=== PATIENT | female | born 1970 | race Caucasian/White ===

== ENCOUNTER → 2017-02-23 | Outpatient (CLI) | payer OTHER ==
[~2017-02-23] VITALS: Ht 165.1 cm; Wt 89.8 kg
[~2017-02-23] MED LIST: ACETAMINOPHEN325 M1 PO; BUTALB-APAP-CA1 EACH PO; CELEXA10 M1 PO; CYMBALTA30 MG PO; IBUPROFEN 600600 M1 PO; LISINOPRIL2.5 MG PO; LOPRESSOR25 PO; LOVENOX40 MG/0.4 SQ; MINIPRIN81 MG PO; NITROGLYCERIN0.4 MG SL; NORCO 5-325 TA1 EACH PO; ORACEA40 MG PO; PLAVIX 75 MG TA75 MG PO; PRAVACHOL PO; TIZANIDINE HCL 22 M1 PO; TROKENDI XR50 MG PO
--- NOTE | ~2017-02-23 | HPC ---
[facility] [place] [address] PAIN MANAGEMENT CONSULTATION Name: ALEX BAEZA ANN Room #: REG GARRET Owusu#: [id number] Admission: 02/23/17 Attend Phys: Kael Silva DO Discharge: Date of : 68 Report #: [id number] THIS REPORT FOR: //name// CC: Madi Silva HISTORY OF PRESENT ILLNESS: The patient is a very pleasant 46-year-old female being treated for myofascial pain, component of lumbar radiculopathy, headaches and coronary artery disease. Last seen in pain clinic on 08/14/2016. She has been stable on Cymbalta 30 mg one a day, tizanidine 2 mg as needed for acute spasm. She uses these fairly infrequently. Returns to pain clinic today noting medications are generally quite helpful. Some pain in the left scapula, some chronic back pain. She rates it 3 on a VAS, though notes that her acute spasms are generally well aborted with p.r.n. tizanidine. She has not required trigger point injections for some time. PHYSICAL EXAMINATION: Today shows 46-year-old female, BMI is 30.9 kg/m2. Blood pressure is modestly elevated at 151/89, pulse 91 and respiratory rate 16. Alert and oriented to person, place and time, judged to be a reasonable historian. Has some diffuse axial back pain, no discrete trigger points today. Gait is tandem. We spent a long time today talking about multiple interval health issues. She has had 3 "cardiac episodes" where she felt she has had syncope/presyncope and dysrhythmia. She does have a pacemaker in place and states that she could feel it kicking in. Each time, her pacemaker has been interrogated by detective and no pathology was found. She did have a chemical stress test with no pathology found. She also notes she has had a little bit of nausea recently. Really, no medication changes are noted, though she does take a little bit of ibuprofen along with her Plavix. I did suggest that that might be a source of some of the nausea. I did caution about melanotic stools and bleeding with concurrent use of Plavix and ibuprofen. ASSESSMENT: Myofascial pain in a patient with multiple comorbidities including coronary artery disease, cardiac dysrhythmia, lumbar radiculopathy and chronic headaches generally stable on baseline medication. RECOMMENDATION: Continue Cymbalta 30 mg once a day, taken the liberty of writing for 6 months of current medication; tizanidine p.r.n. Today, we did talk about trialing Fioricet 1 tablet q. 4 hours as needed for headache, dispensed 20 tablets with 2 refills. Suggest she try this in lieu of migraine [address] [address] PAIN MANAGEMENT CONSULTATION Name: ALEX BAEZA ANN Room #: REG GARRET Owusu#: [id number] Admission: 02/23/17 Attend Phys: Kael Silva DO Discharge: Date of : 68 Report #: [id number] Excedrin. The aspirin in that agent may be causing some gastritis as well. Discharged in good and stable condition. Follow up as needed. By: [id number] [id number] Kael Silva DO /nt
[2017-02-23 12:59] VITALS: BP 151/89
== END | disposition home or self-care (01) ==
LOC: PAIN 12:45
DX: M79.1 Myalgia (principal); G89.29 Other chronic pain; M54.16 Radiculopathy, lumbar region; I25.10 Atherosclerotic heart disease of native coronary artery without angina pectoris; I49.9 Cardiac arrhythmia, unspecified; R51 Headache; Z79.82 Long term (current) use of aspirin; Z95.1 Presence of aortocoronary bypass graft; Z88.5 Allergy status to narcotic agent; Z98.890 Other specified postprocedural states; Z79.899 Other long term (current) drug therapy

== ENCOUNTER → 2017-08-31 | Outpatient (CLI) | payer OTHER ==
[~2017-08-31] VITALS: Ht 165.1 cm; Wt 89.8 kg
[~2017-08-31] MED LIST changes: +AIMOVIG AU70 MG/1 ML SUBQ
--- NOTE | ~2017-08-31 | HPC ---
[facility] [address] [address] PAIN MANAGEMENT CONSULTATION Name: ALEX BAEZA ANN Room #: REG GARRET Bonilla.#: [id number] Admission: 08/31/17 Attend Phys: Kael Silva DO Discharge: Date of : 68 Report #: [id number] THIS REPORT FOR: //name// CC: Madi Silva DATE OF SERVICE: 08/31/2017 The patient is a very pleasant 47-year-old female known to the pain clinic, being treated for chronic headaches, myofascial pain, lumbar radiculopathy, history of coronary artery disease, on Plavix. Last seen nearly half a year ago, 02/23/2017, continued on low dose Cymbalta 30 mg, tizanidine 2 mg p.r.n. and Fioricet for headaches. Returns to pain clinic today noting that these medications have been helpful. She is generally able to participate in activities of daily living. She unfortunately was hospitalized with colitis recently. This has somewhat resolved. She notes that medications are helpful. Primary pain is left scapula, right flank. Headaches have been fairly nominal. She notes dull, knotty, intermittent chronic pain. Fortunately today, she rates it a 0 on a VAS, not sure what seems to exacerbate pain, seems to be episodic. Heat and tizanidine are most helpful for the axial pain. PHYSICAL EXAMINATION: Shows 47-year-old female, BMI is 32.9 kilograms per meter squared. Blood pressure is 134/93, pulse 76, respirations are 14. Again, pain intensity at present is 0. She has not fallen in the last 3 months. Medication list was reconciled. She is on Plavix for coronary artery disease. She is hypertensive and was treated for same. She does not use chronic opiate agents. Rises from chair using armrest. Gait is tandem. Upper and lower extremity strength is generally preserved. Cervical range of motion is modestly limited, some diffuse tenderness in the splenius capitis, trapezius. ASSESSMENT AND PLAN: Myofascial pain, history of headaches, coronary artery disease and lumbar radiculopathy, seems all well controlled with current medications including Cymbalta 30 mg daily, tizanidine 2 mg p.r.n. and Fioricet as needed for headaches. I have taken the liberty of writing for all 3 medications with multiple refills. Follow up in 6 months if needed. <ELECTRONICALLY SIGNED> By: Kael Silva DO 09/03/17 0813 [id number] [id number] Kael Silva DO /nt
[2017-08-31 10:39] VITALS: BP 134/93
== END ==
LOC: PAIN 06:56
DX: M79.1 Myalgia (principal); M54.16 Radiculopathy, lumbar region; I25.10 Atherosclerotic heart disease of native coronary artery without angina pectoris

== ENCOUNTER → 2018-03-29 | Outpatient (CLI) | payer OTHER ==
[~2018-03-29] VITALS: Ht 165.1 cm; Wt 94.3 kg
[2018-03-29 09:17] VITALS: BP 113/78
== END ==
LOC: PAIN 06:47
DX: M25.512 Pain in left shoulder (principal); R51 Headache; G89.29 Other chronic pain; R10.9 Unspecified abdominal pain; I10 Essential (primary) hypertension; F32.9 Major depressive disorder, single episode, unspecified; Z79.899 Other long term (current) drug therapy

== ENCOUNTER → 2018-04-09 | Outpatient (CLI) | payer OTHER ==
[~2018-04-09] VITALS: Ht 165.1 cm; Wt 94.1 kg
--- NOTE | ~2018-04-09 | HPC ---
[facility] [address] [place] [address] PAIN MANAGEMENT CONSULTATION Name: FELISHAJEAN-CLAUDE Room #: REG GARRET Owusu#: [id number] Admission: 04/09/18 Attend Phys: Mazin Silva DO Discharge: Date of : 68 Report #: [id number] THIS REPORT FOR: //name// CC: Mazin Sabillon DATE OF SERVICE: 04/09/2018 CHIEF COMPLAINT: Right thigh pain, chronic headache. HISTORY OF PRESENT ILLNESS: As you know, the patient is a very pleasant 47-year-old female who returns today in followup visit with concern of right leg pain status post Aimovig injection for migraine headaches. The patient underwent the procedure with one of our nurses last week. The patient self-injected the medication and began to experience right leg pain approximately 2 days after the injection. As you are aware, the patient is on anticoagulation. Our concern was the patient may have caused some internal bleeding in the right leg and we had the patient return for followup. The patient, as you are aware, also has a lumbar radiculopathy, which radiates along the right side all the way to her foot and leads to numbness, tingling and aching sensations not dissimilar to the report she had after the injection. We have had the patient return for evaluation of this right leg and to discuss potential treatment options for ongoing headache issues. Her headache does appear to be related to more of a tension style headaches and migrainous. The patient also reports her blood pressure has been poorly controlled of late and she has been under a significant amount of stress with changes in her job, which correlates with tension headache findings. The patient notes about 3 headaches since the Aimovig injection, which may be migrainous though the distribution she reports today appears more tension like. She returns to discuss her concerns about right leg pain. ALLERGIES: MEPERIDINE. CURRENT MEDICATIONS: Lisinopril 2.5 mg once a day, aspirin 81 mg per day, Plavix 75 mg per day, ibuprofen 600 mg p.r.n., pravastatin 20 mg per day, nitroglycerin 0.4 mg p.r.n., Fioricet 1 tab every 6 hours p.r.n. migraine headaches, duloxetine 30 mg once a day, tizanidine 2 mg every 8 hours. SOCIAL HISTORY: The patient reports she is a nonsmoker. Denies IV or illicit drug use. Rarely uses alcohol. She is currently employed in medical billing, working, not receiving workmen's compensation, unaccompanied today. IMAGING: No new imaging available. PHYSICAL EXAMINATION: GENERAL: Well-developed, well-nourished, well-hydrated exogenously obese [address] [address] PAIN MANAGEMENT CONSULTATION Name: FELISHAJEAN-CLAUDE Room #: REG GARRET Owusu#: [id number] Admission: 04/09/18 Attend Phys: Mazin Silva DO Discharge: Date of : 68 Report #: [id number] 47-year-old female appearing stated age, placing pain up to 6/10. HEENT: Normocephalic, atraumatic. Pupils equal, round, reactive to light. Extraocular muscles are intact. Speech is fluent. EXTREMITIES: Show no clubbing, no cyanosis, no edema. MUSCULOSKELETAL: The patient has some tenderness to palpation along the vastus lateralis on the right when compared to left. Deep palpation of the area causes mild intensification of pain. Gait is normal. Muscle bulk and tone is equal and symmetrical. There is no ecchymosis, no changes in skin color or texture overlying the right leg. Distal pulses are normal. There is no venous congestion noted on physical exam. She has full range of motion. Deep tendon reflexes are symmetrical, comparing left lower extremity over right. She does have some palpatory tenderness over the paraspinal musculature of the upper cervical region. Deep palpation of the area causes intensification of pain. There is noted lipoma on the underlying the left splenius capitis muscle. ASSESSMENT: 1. Right-sided pain. 2. Chronic lumbar radiculopathy. 3. Cardiac dysrhythmia, requiring permanent pacemaker and anticoagulation. 4. Bleeding diathesis. 5. Tension headache. 6. Right leg pain. PLAN: 1. The patient has returned today in followup visit with concern of right leg pain status post Aimovig injection. There is no erythema, no ecchymosis overlying the leg. She has good and complete function with full range of motion of the right lower extremity. There is a possibility that the patient self-injected into the vastus lateralis on the right causing intramuscular bleeding due to her anticoagulant activity with Plavix and this has led to an increased leg pain. This will likely be self-resolving as the patient is not noticing any changes in skin color, texture or overlying tissue concerning of continued bleeding. Her symptoms have begun to improve, which would correlate with the possibility of intramuscular injection of the Aimovig. Other potential source may be recurrent lumbar radiculopathy. The patient has known right lower extremity symptoms for which when she stands for long periods, her leg "goes asleep." This would correlate with lumbar radiculopathy, which may be the source of the patient's right leg pain. This may be true, true and unrelated issues, true she had an Aimovig injection on the right side, true she has lateral leg pain, but this may correlate to lumbar radiculopathy, not necessarily to the injection. Either way, treatment should be conservative at this time. 2. I have recommended the patient use a soft roller on the right lateral leg to help improve muscle function. She can utilize this along with heat and cold compresses as necessary to improve overall pain. I recommend the patient keep up with activities, so that this helps utilize the muscle and decrease the pain. [facility] [address] [place] [address] PAIN MANAGEMENT CONSULTATION Name: ALEX BAEZA ANN Room #: REG [facility].#: [id number] Admission: 04/09/18 Attend Phys: Mazin Silva DO Discharge: Date of : 68 Report #: [id number] I did advise the patient if her pain continues or the distribution goes beyond the knee. This is lumbar radicular in origin and she may need epidural injection. She will monitor results and advise us if need to move further. 3. I have advised the patient to no longer utilize Aimovig. There is a possibility she is having a reaction at the site to this medication. She has not noted much relief of her headaches to date and thus, Aimovig can be discontinued. 4. In regards to patient's headache, this appears to be more related to tension and the patient does indicate her stress level has increased, as has her blood pressure is quite elevated today. I do feel that she is going to need to adjust her blood pressure medicine back to a more typical dosing. She will need to contact her PCP in regards to this. In regards to the tension headache, I recommend escalating dose of Cymbalta. 5. The patient will increase Cymbalta from 30 mg to 60 mg. This should help for some of the anxiety and stress she may be experiencing due to changes in work level. This will help the patient decrease potential headache pain as well. I have given the patient 60 tablets of the 30 mg dose to increase to 60 tonight. She will continue for a week, then contact her clinic if no improvement in symptoms and no side effects, we may escalate to 90 mg per day. 6. We will see the patient back in followup visit. She is to monitor her right leg pain and advise us of improvement. If her symptoms do progress beyond the lateral thigh into the lower extremity, she may ultimately need an epidural injection to address chronic lumbar radicular symptoms for which the patient has been treated in the past. She will keep us apprised. <ELECTRONICALLY SIGNED> By: Mazin Silva DO 04/10/18 0908 1 1946 Mazin Silva DO /nt
[2018-04-09 08:14] VITALS: BP 133/88
== END ==
LOC: PAIN 07:01
DX: M54.16 Radiculopathy, lumbar region (principal); G89.29 Other chronic pain; I49.9 Cardiac arrhythmia, unspecified; D69.9 Hemorrhagic condition, unspecified; M79.604 Pain in right leg; G44.209 Tension-type headache, unspecified, not intractable

== ENCOUNTER → 2018-09-11 | Outpatient (CLI) | payer OTHER ==
[~2018-09-11] VITALS: Ht 165.1 cm; Wt 96.5 kg
[~2018-09-11] MED LIST changes: +CYMBALTA60 MG PO; -LISINOPRIL2.5 MG PO; +LISINOPRIL5 MG PO
[2018-09-11 09:32] VITALS: BP 109/73
--- NOTE | 2018-09-11 10:01 | NUR ---
Pain Clinic Assessment: 1. History of Osteoarthritis: Not Applicable History of Rheumatoid Arthritis: Not Applicable 2. Height: 5 ft. 5 in. 165.1 cm. Weight: 212.8 lb. oz. 96.526 kg. Patient's BMI: 35.4 3. Vital Signs: BP: 109/73 Pulse: 85 Resp: 16 Temp: 02 Sat: 98 ECG Mon: 4. Pain Intensity: 3 5. Fall Risk: Dizziness: N Needs help standing or walking: N Fallen in the last 3 months: N Fall risk comments: 6. Patient on Blood Thinner: Clopidogrel Bisulf(Plavix 7. History of Hypertension: Y 8. Opioid Therapy greater than 6 weeks: N Opiate Contract Signed: 9. Risk Assessment Tool Provided: 10. Functional Assessment Tool: 11. Recreational Drug Use: Never Drug Type: Tobacco Use: Never Smoker Tobacco Type: Amount or Packs/day: How Many Years: Alcohol Use: No Frequency: Quant:
--- NOTE | 2018-09-18 08:13 | HPC ---
[facility] [address] [place] [address] PAIN MANAGEMENT CONSULTATION Name: ALEX BAEZA ANN Room #: REG GUEROJeet Bonilla.#: [id number] Admission: 09/11/18 ������������������ Attend Phys: Mazin Silva DO Discharge: ������������������ Date of : 68 Report #: [id number] THIS REPORT FOR: //name// CC: Mazin Sabillon MD DATE OF SERVICE: 09/11/2018 CHIEF COMPLAINT: Left upper back pain, right flank pain. HISTORY OF PRESENT ILLNESS: As you know, the patient is a very pleasant 48-year-old female who returns today in followup visit for treatment of myofascial pain and chronic lumbar radicular symptoms. She indicates that her chronic headaches have improved significantly with adjustments in her blood pressure medication. She returns requesting refill of her Cymbalta as she does find this quite beneficial for pain control. She is placing current pain score at 3/10, states her pain is exacerbated with stress, improves with medications. She describes the pain as aching. She returns in followup visit for treatment of her chronic fibromyalgia pain, which leads to upper back, right flank pain and chronic neck pain. Other than the changes in her blood pressure medication, she has had no changes in therapy. No new injuries. No new traumas. ALLERGIES: MEPERIDINE. CURRENT MEDICATIONS: Cymbalta 90 mg p.o. at bedtime, tizanidine 2 mg q. 4 hours p.r.n. pain, Fioricet 1 tab p.o. q. 4 hours p.r.n. headache, nitroglycerin 0.4 mg p.r.n., Pravachol 20 mg per day, ibuprofen 600 mg 3 times a day, Plavix 75 mg per day, aspirin 81 mg per day, lisinopril 5 mg per day. SOCIAL HISTORY: The patient is a nonsmoker. Denies IV or illicit drug use. Rarely uses alcohol. 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 IMAGING: No new imaging available. PHYSICAL EXAMINATION: VITAL SIGNS: Blood pressure 109/73, pulse 85, respiratory rate 16 and unlabored. The patient is 98% on room air. Height 5 feet 5 inches tall, weight 212.8 pounds, BMI calculated 35.4. GENERAL: Well-developed, well-nourished, well-hydrated exogenously obese 48-year-old female, appearing stated age, placing current pain score at 3/10. HEENT: Normocephalic, atraumatic. Pupils equal, round, reactive to light. EXTREMITIES: Show no clubbing and no cyanosis, no edema. MUSCULOSKELETAL: There is palpatory tenderness throughout the paraspinal musculature of the cervical, upper thoracic area, no [place] [address] PAIN MANAGEMENT CONSULTATION Name: ALEX BAEZA ANN Room #: REG [facility].#: [id number] Admission: 09/11/18 ������������������ Attend Phys: Mazin Silva DO Discharge: ������������������ Date of : 68 Report #: [id number] She has multiple tender points, no specific trigger points. Upper extremity strength appears symmetrical, 5/5; lower extremity strength symmetrical, 5/5. ASSESSMENT: 1. Myofascial pain. 2. Chronic lumbar radiculopathy. 3. Lumbar degeneration. 4. Headaches. 5. Chronic intractable pain. PLAN: 1. The patient returns today in followup visit indicating that adjustments in her blood pressure medication have led to improvement in her headache pain. We are pleased that the patient is seeing improvement with this adjustment in therapy. We continue to monitor for any other changes. If further headaches do reoccur, I recommend the patient follow up with the physician, making adjustments in her blood pressure medication. We are pleased to see she is doing well from a headache standpoint. 2. The patient has requested refill of her Cymbalta. She believes this medication is working beneficially for her myofascial pain secondary to fibromyalgia. We recommend continuation of the 90 mg dose with the understanding that if necessary, we can move towards 120 mg dose if necessary, though we wish to use the lowest most effective dose for this patient. The patient is amenable. 3. The patient was provided prescription of Cymbalta 60 mg dose in conjunction with the 30 mg dose, #30 of each which provides 90 mg total for 1 month. She was given #30 tablets with 2 refills equating to a 3-month prescription. Prescriptions were provided to the patient in written form today. 4. We will see the patient back in followup visit in 3 months for medication therapy. She can follow up with her PCP if she wishes to receive these medications through their services. Otherwise, we will see her back in 3 months. ��������������������������������������������� <ELECTRONICALLY SIGNED> ���������������������������������������� By: Mazin Silva DO ��������������������������������������������� 09/18/18 0813 0813 [id number] Mazin Silva DO /nt
== END ==
LOC: PAIN 06:46
DX: M51.16 Intervertebral disc disorders with radiculopathy, lumbar region (principal); G89.4 Chronic pain syndrome; M79.18 Myalgia, other site; R51 Headache; Z79.899 Other long term (current) drug therapy

== ENCOUNTER → 2019-04-02 | Outpatient (CLI) | payer OTHER ==
[~2019-04-02] VITALS: Ht 165.1 cm; Wt 95.0 kg
[~2019-04-02] MED LIST changes: +LINZESS145 MCG PO; +MEDROLDOSEPACK PO
[2019-04-02 09:02] VITALS: BP 114/76
--- NOTE | 2019-04-02 09:14 | NUR ---
Pain Clinic Assessment: 1. History of Osteoarthritis: Not Applicable History of Rheumatoid Arthritis: Not Applicable 2. Height: 5 ft. 5 in. 165.1 cm. Weight: 209.4 lb. oz. 94.983 kg. Patient's BMI: 34.8 3. Vital Signs: BP: 114/76 Pulse: 82 Resp: 16 Temp: 02 Sat: 98 ECG Mon: 4. Pain Intensity: 4 5. Fall Risk: Dizziness: Y Needs help standing or walking: N Fallen in the last 3 months: N Fall risk comments: 6. Patient on Blood Thinner: Clopidogrel Bisulf(Plavix 7. History of Hypertension: Y 8. Opioid Therapy greater than 6 weeks: N Opiate Contract Signed: 9. Risk Assessment Tool Provided: 10. Functional Assessment Tool: 11. Recreational Drug Use: Never Drug Type: Tobacco Use: Never Smoker Tobacco Type: Amount or Packs/day: How Many Years: Alcohol Use: No Frequency: Quant:
--- NOTE | 2019-04-04 08:22 | HPC ---
[facility] [address] [place] [address] PAIN MANAGEMENT CONSULTATION Name: ALEX BAEZA ANN Room #: REG GARRET Owusu#: [id number] Admission: 04/02/19 Attend Phys: Yarely Woods Discharge: Date of : 68 Report #: [id number] THIS REPORT FOR: //name// CC: Yarely Matthews MD DATE OF SERVICE: 04/02/2019 CHIEF COMPLAINT: Low back pain, right buttock pain. HISTORY OF PRESENT ILLNESS: This is a very pleasant 48-year-old female who returned to the pain clinic today who is being treated for myofascial pain and has lumbar radicular symptoms as well as ongoing headaches and cardiac issues. She was last seen in our clinic in January with Dr. Mazin Silva. She continues to take her Cymbalta 60 mg daily and finds that very beneficial in helping with her fibromyalgia discomfort. She reports that she has not been taking the Fioricet since it is not beneficial in helping her migraines. Today, she reports a pain score of 4/10, but it is mostly a new pain in her right buttock that radiates into her right posterior leg to her knee. She has been seeing a chiropractor with no relief and has been taking tizanidine that has not been overly helpful, but it does allow her to sleep at night. She reports that this pain started after she was moving several boxes and furniture in her house into storage where she had housework done and has been flared since January. She is wondering about treatment options for this new pain. The patient reports that this is an aching, shooting, burning, electrical pain, with occasional numbness in her right leg with prolonged standing and activity and stress, but she does find her Cymbalta helpful for her fibromyalgia aches and pains that she has in her shoulders. ALLERGIES: DEMEROL. CURRENT LIST OF MEDICATIONS: Cymbalta 90 mg daily, Linzess 145 mg daily, tizanidine p.r.n., nitroglycerin p.r.n. Pravachol 20 mg at bedtime, Plavix 75 mg daily, aspirin 81 mg daily, lisinopril 5 mg daily and occasional Motrin. PQRS: 1. She does not suffer from osteoarthritis or rheumatoid arthritis. 2. Height is 5 feet 5 inches, weight is 209, BMI is 34. 3. Vital signs, 114/76, pulse is 82, respirations 16, oxygen sat is 98. 4. Pain score is 4/10. 5. Complains of dizziness, does not need help walking or standing, has not fallen in the last 3 months. 6. She is on Plavix as well as hypertension medicine. [facility] [address] [place] [address] PAIN MANAGEMENT CONSULTATION Name: FELISHAJEAN-CLAUDE Room #: REG CLJeet Owusu#: [id number] Admission: 04/02/19 Attend Phys: Yarely Woods Discharge: Date of : 68 Report #: [id number] 7. Opioid therapy. She is not on recreational drug use, she denies. She is not a smoker and does not drink alcohol. We did not check the prescription monitoring system since she is not on any opioids. PHYSICAL EXAMINATION: GENERAL: This is a well-developed, well-nourished, exogenous obese 48-year-old female who appears her stated age, placing her current pain score today at 4/10. HEENT: Normocephalic, atraumatic. Extraocular eye muscles are intact. Mucous membranes are moist. EXTREMITIES: No clubbing, no cyanosis, no edema. MUSCULOSKELETAL: She has diffuse axial back pain. She has pain in her right sacroiliac joint with radiation down her posterior leg to her thigh, not past the knee following the L5-S1 dermatomal distribution, has occasional numbness in her right lower extremity. IMPRESSION: 1. Myofascial pain. 2. Coronary artery disease. 3. Cardiac dysrhythmias requiring permanent pacemaker placement. 4. Anticoagulation therapy for factor V Leiden. 5. Lumbar radiculopathy. 6. Chronic intractable pain. 7. Chronic headaches. PLAN: 1. We discussed treatment options with the patient today. The patient is complaining of a new pain that we will try to treat with a Medrol Dosepak at this present time. She has tried conservative measures of ibuprofen, which I cautioned her against taking because she is on a blood thinner. She has gone to the chiropractor for at least a month, though she feels that that made her symptoms worse. It was decided that at first, we will try a Medrol Dosepak to see if that reduces some of her inflammation causing her pain. If this is not successful, we will try physical therapy and then proceed to other options. 2. The patient is to ask her validation manager next week if she is able to go off her Plavix medication using Lovenox until 24 hours prior to an injection if that is needed. We hope that she will not need an epidural steroid injection, but since she is seeing her validation manager next week, she will discuss this at his appointment. 3. The patient given a script for Cymbalta 30 mg, #30, with 2 additional refills; Cymbalta 60 mg, #30 with 2 additional refills. This is a 3-month supply that is very beneficial in helping her fibromyalgia pain. 4. No tizanidine or Fioricet is needed. She is not finding great benefit in these medications. 5. The patient was instructed to call after she has finished the Medrol Dosepak. If she has still continued pain, I will leave a prescription for physical therapy, which she will start if she needs to further her treatment [facility] [address] [place] [address] PAIN MANAGEMENT CONSULTATION Name: ALEX BAEZA ANN Room #: REG CLJeet Owusu#: [id number] Admission: 04/02/19 Attend Phys: Yarely Woods Discharge: Date of : 68 Report #: [id number] options. 6. The patient is seen in collaboration with Dr. Mazin Silva who did see the patient as well today. <ELECTRONICALLY SIGNED> By: Yarely Woods 04/04/19 0822 [id number] Yarely Woods /paul
== END ==
LOC: PAIN 06:45
DX: M54.16 Radiculopathy, lumbar region (principal); M79.18 Myalgia, other site; I25.10 Atherosclerotic heart disease of native coronary artery without angina pectoris; G89.4 Chronic pain syndrome; R51 Headache; Z88.8 Allergy status to other drugs, medicaments and biological substances; Z79.899 Other long term (current) drug therapy

== ENCOUNTER → 2020-01-15 | Outpatient (CLI) | payer OTHER | LOC: BC 10:27 | PROVIDERS: ATTEND Obstetrics & Gynecology | DX: Z12.31 Encounter for screening mammogram for malignant neoplasm of breast (principal) ==

== ENCOUNTER → 2020-07-06 | Outpatient (CLI) | payer OTHER ==
[~2020-07-06] VITALS: Ht 165.1 cm; Wt 103.1 kg
[~2020-07-06] MED LIST changes: +LIPITOR 20 MG T20 M1 PO; -LISINOPRIL5 MG PO; -PRAVACHOL PO; +TOPROL XL50 MG PO; +TYLENOL325 M1 PO
[2020-07-06 10:20] VITALS: BP 138/89
--- NOTE | 2020-07-06 10:49 | NUR ---
Pain Clinic Assessment: 1. History of Osteoarthritis: Not Applicable History of Rheumatoid Arthritis: Not Applicable 2. Height: 5 ft. 5 in. 165.1 cm. Weight: 227.2 lb. oz. 103.057 kg. Patient's BMI: 37.8 3. Vital Signs: BP: 138/89 Pulse: 66 Resp: 18 Temp: 02 Sat: 96 ECG Mon: 4. Pain Intensity: 4 5. Fall Risk: Dizziness: N Needs help standing or walking: N Fallen in the last 3 months: N Fall risk comments: 6. Patient on Blood Thinner: Clopidogrel Bisulf(Plavix 7. History of Hypertension: Y 8. Opioid Therapy greater than 6 weeks: N Opiate Contract Signed: 9. Risk Assessment Tool Provided: 10. Functional Assessment Tool: 11. Recreational Drug Use: Never Drug Type: Tobacco Use: Never Smoker Tobacco Type: Amount or Packs/day: How Many Years: Alcohol Use: No Frequency: Quant:
--- NOTE | 2020-07-07 16:13 | HPC ---
[facility] [address] [place] [address] PAIN MANAGEMENT CONSULTATION Name: ALEX BAEZA Room #: REG GARRET PerezMikePerfecto.#: [id number] Admission: 07/06/20 Attend Phys: Mazin Silva DO Discharge: Date of : 68 Report #: [id number] THIS REPORT FOR: cc: Madi Sabillon MD, John H. MD Johnson, James E. DO ~ DATE OF SERVICE: 07/06/2020 REFERRING PHYSICIAN: Madi Sabillon MD CHIEF COMPLAINT: Low back pain, right buttock pain. HISTORY OF PRESENT ILLNESS: As you know, the patient is a 50-year-old female returning in followup visit with continued low back pain, right buttock pain. She feels the combination of Cymbalta along with tizanidine works very well for pain control. She recently ran out of the 30 mg Cymbalta and has been taking 60 mg only and has noted exacerbation of symptoms. She is now placing pain score 4/10. She reports no changes in her medical history since our last visit. She returns today in followup visit requesting increase of the Cymbalta back to the 90 mg per day along with tizanidine 2 mg b.i.d. for myofascial pain. The patient reports pain as aching, shooting, burning, electrical like in sensation, places pain score 4/10. She denies injury or trauma. She states activities movement and walking tends to exacerbate symptoms, medications and rest tend to improve pain. She states she has been busy of late working on her new farm house that they recently purchased that required a lot of work. She states this may have exacerbated symptoms. ALLERGIES: DEMEROL. CURRENT MEDICATIONS: Cymbalta 60 mg once a day, Linzess 145 mg once a day, tizanidine 2 mg b.i.d., nitroglycerin p.r.n., Pravachol 20 mg once a day, Plavix 75 mg per day, aspirin 81 mg per day, lisinopril 5 mg per day. SOCIAL HISTORY: The patient denies tobacco, alcohol, IV or illicit drug use. She is unaccompanied at today's visit. IMAGING: No new imaging available. PHYSICAL EXAMINATION: VITAL SIGNS: Blood pressure 138/89, pulse 66, respiratory rate 18 and unlabored. The patient is 96% on room air. Height 5 feet 5 inches tall, weight 227.2 pounds and BMI calculated 37.8. GENERAL: Well-developed, well-nourished, well-hydrated exogenously obese 50-year-old female appearing stated age, pain is rated today 4/10. HEENT: Normocephalic, atraumatic. Pupils equal, round and reactive. NEUROLOGIC: Speech is fluent. The patient is wearing a mask in compliance with [address] [address] PAIN MANAGEMENT CONSULTATION Name: ALEX BAEZA ANN [facility] [id number] Admission: 07/06/20 Attend Phys: Mazin Silva DO Discharge: Date of : 68 Report #: [id number] COVID-19 regulations. EXTREMITIES: Show no clubbing, no cyanosis. No appreciable edema. MUSCULOSKELETAL: Tenderness to palpation is noted on the lumbar spine, right side specific. There is no spinous process tenderness. No pain directly over the SI joint. Provocating testing of the lumbar spine is met with increased pain on the right, negative left. ASSESSMENT: 1. Chronic low back pain. 2. Myofascial pain. 3. Chronic anticoagulation. 4. Chronic intractable pain. PLAN: 1. The patient returns today in followup visit requesting adjustments in her Cymbalta. Unfortunately, she ran out of her 30 mg tablets of Cymbalta, which she was taking with the 60 mg for a total 90 mg per day with good efficacy. She has noted increasing pain since the discontinuation of the 30 mg tablets. She returns to adjust back to the 90 mg a day and to receive refill of tizanidine. The patient denies side effects of sleepiness, disorientation, confusion, mental slowing with use of the medication. She does feel it is working well for pain control and requests a refill of the medications to be provided today at the higher dosing. 2. The patient and I did discuss the efficacy of the Cymbalta at higher dosing. She was doing very well at 90 mg per day. We will increase the patient back to this medication at this time. We have advised the patient and cautioned the patient not to run out of the medication as there is a potential of side effects coming off the medication acutely. The fact that she reduced down to 60 mg and continue the medication at that dose likely led to lack of any potential withdrawal-like effects from the medication, though we do not recommend that she initiate a reduction of the medication unless deemed necessary medically. We recommend she continue on the 90 total mg per day. She was provided prescription of Cymbalta 60 and Cymbalta 30 mg capsules, #30 of each with 3 refills, essentially 4 months' worth of medication. 3. The patient was provided refill prescription of tizanidine 2 mg dose for which she takes the medication twice a day for her myofascial symptoms with good efficacy. She denies side effects of sleepiness, disorientation, confusion with the use of therapy. We have provided the patient #60 tablets with 3 refills, 4 months' worth of medication. 4. The patient and I did discuss the possibility of undergoing interventional treatments at this time, the patient feels she is doing well and does not wish to make any interventional treatment appointments until which time she is able to return to her normal dose of medication to determine if this would be beneficial. We will be available to see the patient back in followup visit for [facility] [address] [place] [address] PAIN MANAGEMENT CONSULTATION Name: ALEX BAEZA ANN Room #: REG CL Chad.#: [id number] Admission: 07/06/20 Attend Phys: Mazin Silva DO Discharge: Date of : 68 Report #: [id number] interventional treatments, otherwise we will see her back in 4 months for medication management. <ELECTRONICALLY SIGNED> By: Mazin Silva DO 07/07/20 1613 1134 1343 Mazin Silva DO /nt
== END ==
LOC: PAIN 06:52
PROVIDERS: ATTEND Anesthesiology Pain Medicine
DX: M54.5 Low back pain (principal); R10.2 Pelvic and perineal pain; M79.18 Myalgia, other site; G89.29 Other chronic pain; Z79.01 Long term (current) use of anticoagulants